=== PATIENT | male | born 1980 | race Caucasian/White ===

== ENCOUNTER → 2018-04-25 16:24 | Outpatient (CLI) | payer BC, SELFPAY ==
--- NOTE | 2018-04-25 | DI.MRI.S_ITS ---
PROCEDURE: MR HAND LT WO/W CON INDICATIONS: LOCALIZED SWELLING/MASS AND LUMP LEFT LATERAL 2ND DIGIT TECHNIQUE: Noncontrast coronal T1 spin echo and STIR, sagittal T1 spin echo with fat saturation and STIR, axial T1 spin echo and T2 fast spin echo with fat saturation. After the administration of contrast, axial/sagittal/coronal T1 spin echo with fat saturation through the left hand and left second finger. COMPARISON: None. FINDINGS: Image quality: Excellent. Bones: The visualized bone marrow demonstrates normal signal on all sequences. The overlying cortex appears intact. No cortical erosion or destruction is seen. No abnormal intraosseous enhancement. Soft tissues: There is a well-circumscribed T1 hypointense and T2 hyperintense structure within subcutaneous soft tissue along radial and slightly volar aspect of the second finger adjacent to second proximal phalangeal shaft. This structure appears to have a well defined capsule and is homogeneous in signal intensity. This lesion measures 1.5 x 1.5 x 2 cm in its largest transverse, AP and craniocaudal dimensions. No gross contrast enhancement is noted within the structure is seen. The scanned muscles demonstrate normal overall bulk and internal signal. No area of abnormal contrast enhancement is noted.. IMPRESSION: 1. Oval 1.5 x 1.5 x 2 cm well-circumscribed fluid signal structure involving subcutaneous soft tissue along radial and slightly volar aspect of right second proximal phalangeal shaft with no definite contrast enhancement. No adjacent cortical erosion or surrounding soft tissue edema is seen. Finding likely represent benign process such as ganglion cyst. 2. No other soft tissue masses seen. No marrow signal abnormality. No area of abnormal contrast enhancement. Tendons and ligaments of fingers are intact. Dictated by: Tom Cyr M.D. on 04/28/2018 at 9:51 Approved by: Tom Cyr M.D. on 04/28/2018 at 10:11
== END ==
PROVIDERS: Visit Provider Orthopaedic Surgery
DX: R22.32 Localized swelling, mass and lump, left upper limb (principal)
CPT/HCPCS: 73220; A9579

== ENCOUNTER 2019-10-29 22:44 | Emergency (ER) | payer OTHER, SELFPAY ==
--- NOTE | 2019-10-29 22:46 | DI.RAD.S_ITS ---
PROCEDURE: XR FINGER RT MIN 2V INDICATIONS: deep laceration right hand ring finger TECHNIQUE: AP hand, 2 views of the right fourth finger(s) acquired. COMPARISON: None. FINDINGS: Bones: No fractures or dislocations. No suspicious bony lesions. Soft tissues: No suspicious soft tissue calcifications. Small 1 x 2 mm metallic density foreign body noted in the soft tissues lateral to the head of the fourth proximal phalange. Soft tissue defect noted in the base of the fourth finger compatible with laceration. IMPRESSION: 1. No fracture. No osseous lesion. If symptoms and/or clinical suspicion for pathology persists, further assessment with repeat radiographs (7-10 days) or advanced imaging (e.g. CT, MRI or bone scan) may be helpful. 2. Small metallic density foreign body in the soft tissues of the fourth finger lateral to the distal margin of the fourth proximal phalange. Dictated by: Leah Gonsalez MD, PhD on 10/30/2019 at 8:26 Approved by: Leah Gonsalez MD, PhD on 10/30/2019 at 8:28
[2019-10-29 22:50] VITALS: BP 138/86; PULSE 98; RESP 18; TEMP 36.9; O2SAT 97; BMI 30.2
[2019-10-29] MEDS: cephALEXin 250 MG PREPACK 1 BOTTLE MISC (22:54)
[2019-10-29] MEDS: LIDO 1%/SOD BICARB 8.4% (10ML) 10 ML SYRINGE INJ (22:54)
--- NOTE | 2019-10-30 00:09 | PC.NURSE ---
sutures per dr. klein
[2019-10-30 00:21] VITALS: BP 134/82; PULSE 90; RESP 15; O2SAT 96
--- NOTE | 2019-10-30 07:34 | ED_ITS ---
HPI - Wound/Laceration General Chief Complaint: Wound/Laceration Stated Complaint: laceration to right hand ring finger Time Seen by Provider: 10/29/19 22:46 Source: patient Mode of arrival: Ambulatory Limitations: no limitations History of Present Illness HPI narrative: 39-year-old male, daily smoker with out medical history presents with a work related deep, complex laceration on his right ring finger. He has g ot painful but full range of motion and bleeding has been controlled. He denies any numbness, tingling or weakness. His tetanus is current. He denies other injury. He was working with heavy objects when his finger was pinched by large pieces of metal. Onset (ago): minute(s) Extremity Location: Right: hand Place: work Patient tetanus UTD: Yes Context: accidental Associated symptoms: pain Treatments prior to arrival: bandage Related Data Previous Rx's Medication Instructions Recorded hydroxyzine HCl 25 mg tablet 25 mg PO TID-QID PRN #90 tab 04/02/18 cephalexin [Keflex] 500 mg PO QID 7 Days #28 cap 10/29/19 Allergies Allergy/AdvReac Type Severity Reaction Status Date / Time No Known Drug Allergies Allergy Unverified 04/02/18 16:06 Review of Systems Constitutional Constitutional: Denies chills, Denies fatigue, Denies fever(s), Denies frequent falls, Denies lethargy and Denies weakness Eyes Eyes: Denies change in vision, Denies eye discharge, Denies irritation and Denies loss of vision ENT Ears, Nose, Mouth, and Throat: Denies change in voice, Denies dizziness, Denies neck pain, Denies sore throat and Denies throat swelling Cardiovascular Cardiovascular: Denies chest pain, Denies irregular heart rhythm, Denies lightheadedness, Denies palpitations, Denies dyspnea, Denies dyspnea on exertion and Denies orthopnea Respiratory Respiratory: Denies cough, Denies dyspnea, Denies dyspnea on exertion and Denies wheezing Gastrointestinal Gastrointestinal: Denies abdominal pain, Denies change in bowel habits, Denies diarrhea, Denies nausea and Denies vomiting Musculoskeletal Musculoskeletal: Denies neck pain and Denies numbness Integumentary/Breasts Skin/Breast: Denies pruritus, Denies erythema, Denies rash and Reports wounds Neurologic Neurologic: Denies behavioral changes, Denies confusion, Denies dizziness, Denies frequent falls, Denies loss of vision, Denies numbness and Denies weakness Psychiatric Psychiatric: Denies anxiety, Denies behavioral changes, Denies confusion, Denies depression, Denies homicidal ideation and Denies suicidal ideation Endocrine Endocrine: Denies fatigue, Denies flushing and Denies palpitations Hematologic/Lymphatic Hematologic/Lymphatic: Denies easy bruising Allergic/Immunologic Allergic/Immunologic: Denies urticaria, Denies throat swelling and Denies wheezing Patient History Social History Smoking Status: Current every day smoker alcohol intake: current substance use type: does not use Smoking Status: Current every day smoker alcohol intake frequency: a few times a week Substance Use Type: does not use Exam Narrative Exam Narrative: GEN: AOx3 and in mild distress EYES: Pupils are equal, round, and reactive to light and accommodation. Extraoccular muscles are intact bilaterally. There is no subconjunctival hemorrhage or exudate. CHEST: Lungs are clear to auscultation bilaterally and free of wheezes, rales, or rhonchi. Heart rate is regular rhythm, there are no murmurs, clicks, rubs, or gallops. There is no chest wall tenderness. ABD: Abdomen is soft and nontender. There is no guarding or rebound. Bowel soun ds are normal in all 4 quadrants. There is no mass or organomegaly. EXT: 3 cm ragged laceration on the dorsum of right ring finger. No active bleeding, deep but no tendon involvement, no bony involvement. No numbness, tingling or weakness. Patient has full range of motion and strength SKIN: Otherwise warm, pink, and dry. No erythema or rash Initial Vital Signs Initial Vital Signs: Vital Signs Temperature 98.4 F 10/29/19 22:50 Pulse Rate 98 H 10/29/19 22:50 Respiratory Rate 18 10/29/19 22:50 Blood Pressure 138/86 10/29/19 22:50 Pulse Oximetry 97 10/29/19 22:50 Procedures Laceration Repair Laceration 1: Side (If applicable): right Size (cm): 3 Description: irregular, clean and contaminated (2 small FBs removed) Depth: involves muscle layer Pre-repair: wound explored and irrigated extensively Skin layer closed with: nylon Size (cm): 4-0 Technique: simple, interrupted Nerve Block Nerve Block 1: Time out performed: Yes Local Anesthetic: lidocaine 1% and with bicarb Amount of anesthesia used (mL): 6 Side: right Nerve Blocks: digital Procedure Successful: Yes Patient Tolerated Procedure: Well Complications: none Course Orders Ordered: Discontinued Medications Cefazolin Sodium (Keflex 250 Mg Prepack) 1 bottle MISC SEEINSTR ONE Stop: 10/29/19 22:47 Last Admin: 10/29/19 22:54 Dose: 500 mg Documented by: DUANE Lidocaine/Sodium Bicarbonate (Buffered Lidocaine 10 Ml Syr) 10 ml INJ NOW ONE Stop: 10/29/19 22:47 Last Admin: 10/29/19 22:54 Dose: 10 ml Documented by: DUANE Vital Signs Vital signs: Vital Signs - 8 hr 10/30/19 00:21 Pulse Rate 90 Respiratory Rate 15 Blood Pressure 134/82 Pulse Oximetry 96 MDM - Wound/Laceration Imaging Data Extremity x-ray #1: Radiologist's Impression: Chart Viewer Diagnostics DATE TYPE STATUS REF RANGE/AUTHOR Hx 10/29/19 22:46 Leah Gonsalez 04/25/18 00:00 Tom Cyr Ayaan Adams 39, M106/26/1979 [facility], [facility] ED 187.96cm 106.594kg BMI: 30.2kg/m? Wound/Laceration Search Chart No Data to Display ONSET 10/30/19 00:21 KadenAyaan paz 39 M [address] [address] XRay Report Signed Patient: Ayaan Adams [facility]#: [id number] : 1980Acct:[id number] Age/Sex: 39 / MDate of Service: 10/29/19 Loc: ED Accession Number: [id number] Procedure: XR finger RT min 2V Ordering Provider: Jonas Allan D.O. PROCEDURE: XR FINGER RT MIN 2V INDICATIONS: deep laceration right hand ring finger TECHNIQUE: AP hand, 2 views of the right fourth finger(s) acquired. COMPARISON: None. FINDINGS: Bones: No fractures or dislocations. No suspicious bony lesions. Soft tissues: No suspicious soft tissue calcifications. Small 1 x 2 mm metallic density foreign body noted in the soft tissues lateral to the head of the fourth proximal phalange. Soft tissue defect noted in the base of the fourth finger compatible with laceration. IMPRESSION: 1. No fracture. No osseous lesion. If symptoms and/or clinical suspicion for pathology persists, further assessment with repeat radiographs (7-10 days) or advanced imaging (e.g. CT, MRI or bone scan) may be helpful. 2. Small metallic density foreign body in the soft tissues of the fourth finger lateral to the distal margin of the fourth proximal phalange. Dictated by: Leah Gonsalez MD, PhD on 10/30/2019 at 8:26 Approved by: Leah Gonsalez MD, PhD on 10/30/2019 at 8:28 Discharge Plan Departure Patient Disposition: Home Clinical Impression: Laceration of finger of right hand Qualifiers: Encounter type: initial encounter Finger: ring finger Damage to nail status: without damage Foreign body presence: without foreign body Qualified Code(s): S61.214A - Laceration without foreign body of right ring finger without damage to nail, initial encounter Discharge Date/Time: 10/30/19 00:23 Instructions: DI for Laceration Repair Activity Restrictions/Additional Instructions: Please keep the wound clean and dry to the best of your ability. Please monitor for signs of infection such as redness to the skin or increasing pain. Have the sutures removed by your doctor in about 7 days. If you are unable to get into your doctor, we would be happy to remove the sutures in that same timeframe. Prescriptions: New cephalexin [Keflex] 500 mg capsule 500 mg PO QID 7 Days Qty: 28 RF: 0 No Action hydroxyzine HCl 25 mg tablet 25 mg PO TID-QID PRN (Reason: itching) Qty: 90 RF: 3 Referrals: Paulo Dhaliwal MD [Primary Care Provider] -
== END 2019-10-30 00:23 | disposition home or self-care (01) ==
PROVIDERS: Emergency Provider Emergency Medicine; PCP Student in an Organized Health Care Education/Training Program
DX: S61.214A Laceration without foreign body of right ring finger without damage to nail, initial encounter (principal); W26.8XXA Contact with other sharp object(s), not elsewhere classified, initial encounter; Y99.0 Civilian activity done for income or pay
CPT/HCPCS: 12002; 64450; 73140; 99283

== ENCOUNTER → 2020-07-07 14:05 | Outpatient (CLI) | payer OTHER, SELFPAY ==
--- NOTE | 2020-07-07 | DI.RAD.S_ITS ---
PROCEDURE: XR ANKLE RT MIN 3V INDICATIONS: RIGHT ANKLE PAIN TECHNIQUE: 3 views of the ankle were acquired. COMPARISON: None. FINDINGS: Bones: No fractures or dislocations. Ankle mortise is normally aligned. No suspicious bony lesions. Scattered degenerative subchondral sclerosis and spurring. Soft tissues: No tibiotalar joint effusion. Achilles tendon appears normal. IMPRESSION: Mild degenerative changes. If the patient's pain or other symptoms persist, consider further evaluation with MRI Dictated by: Darrius Light M.D. on 07/07/2020 at 15:37 Approved by: Darrius Light M.D. on 07/07/2020 at 15:39
== END ==
PROVIDERS: PCP Student in an Organized Health Care Education/Training Program; Referring Provider Family Medicine; Visit Provider Family Medicine
DX: M25.571 Pain in right ankle and joints of right foot (principal)
CPT/HCPCS: 73610

== ENCOUNTER → 2020-11-21 07:58 | Outpatient (CLI) | payer OTHER, SELFPAY ==
--- NOTE | 2020-11-21 | DI.RAD.S_ITS ---
PROCEDURE: XR RIBS LT MIN 3V W CXR1V INDICATIONS: LEFT RIB PAIN TECHNIQUE: 3 views of the left ribs were acquired, along with a single view chest. COMPARISON: None. FINDINGS: Surgical changes and devices: None. Bones and chest wall: There is a nondisplaced left 9th and 10th lateral rib fractures. No suspicious bony lesions. Overlying soft tissues appear unremarkable. Lungs and pleura: No pleural effusions or pneumothorax. Lungs appear clear. Mediastinum: Mediastinal contours appear normal. Heart size is normal. IMPRESSION: Nondisplaced left 9th and 10th rib fractures. Dictated by: Marline Zacarias M.D. on 11/21/2020 at 8:41 Approved by: Marline Zacarias M.D. on 11/21/2020 at 8:43
== END ==
PROVIDERS: PCP Student in an Organized Health Care Education/Training Program; Referring Provider Family Medicine; Visit Provider Family Medicine
DX: S22.42XA Multiple fractures of ribs, left side, initial encounter for closed fracture (principal); R07.81 Pleurodynia; W17.89XA Other fall from one level to another, initial encounter
CPT/HCPCS: 71101

== ENCOUNTER → 2021-05-02 13:11 | Outpatient (ROUT) | payer OTHER, SELFPAY ==
[2021-05-02 13:40] LABS: COVID19 -Nasal RAPID Negative (Negative)
== END ==
PROVIDERS: PCP Student in an Organized Health Care Education/Training Program; Visit Provider Family Medicine
DX: R05.9 Cough, unspecified (principal); R52 Pain, unspecified
CPT/HCPCS: 87635

== ENCOUNTER 2024-05-28 10:19 | Emergency (ER) | payer OTHER, SELFPAY ==
[2024-05-28 10:32] VITALS: BP 136/81; PULSE 108; RESP 13; TEMP 36.4; O2SAT 96; BMI 31.4
--- NOTE | 2024-05-28 10:37 | DI.RAD.S_ITS ---
PROCEDURE: XR FINGER LT MIN 2V INDICATIONS: caught finger in drill press TECHNIQUE: AP hand, 2 views of the 4th finger(s) acquired. COMPARISON: [facility], CR, XR FINGER RT MIN 2V, 10/29/2019, 22:50. FINDINGS: Bones: Comminuted 4th distal phalanx fracture centered at the base. There is intra-articular extension. There is appearance of avulsion extension at the distal aspect of the 4th middle phalanx at the level of the joint space. Soft tissues: No suspicious soft tissue calcifications. Soft tissue laceration is present. IMPRESSION: 4th digit comminuted intra-articular fractures as above. Dictated by: Marline Zacarias M.D. on 05/28/2024 at 11:05 Approved by: Marline Zacarias M.D. on 05/28/2024 at 11:06
--- NOTE | 2024-05-28 12:14 | ED_ITS ---
HPI - Wound/Laceration <Jeane Goodman PA-C - Last Filed: 05/28/24 19:23> General Chief Complaint: Wound/Laceration Stated Complaint: cut Left ring finger Time Seen by Provider: 05/28/24 11:39 Mode of arrival: Ambulatory History of Present Illness HPI narrative: Mr. Adams is a pleasant 44-year-old male with no reported past medical history who presents to the emergency department for laceration of his left ring finger that occurred just prior to arrival. Patient was working with an electric drill press when his left ring finger got caught in the drill press. Reports a jagged bleeding laceration on the radial side of his distal ring finger. States his last tetanus shot was about 4 years ago. Denies any other injuries. Pressure dressing applied in triage with no bleeding soak through. No medications prior to arrival. No blood thinner use. No allergies. Related Data Previous Rx's Medication Instructions Recorded hydroxyzine HCl 25 mg tablet 25 mg PO TID-QID PRN itching #90 04/02/18 tabs cephalexin 500 mg capsule 500 mg PO QID 7 days #28 caps 05/28/24 Allergies Allergy/AdvReac Type Severity Reaction Status Date / Time No Known Drug Allergies Allergy Verified 05/28/24 10:32 Review of Systems <Jeane Goodman PA-C - Last Filed: 05/28/24 19:23> Review of Systems ROS Unobtainable: All systems reviewed & are unremarkable except as noted in HPI and below Patient History <Jeane Goodman PA-C - Last Filed: 05/28/24 19:23> Social History Smoking Status: Unknown if ever smoked alcohol intake: current substance use type: does not use Smoking Status: Unknown if ever smoked alcohol intake frequency: a few times a week Exam <Jeane Goodman PA-C - Last Filed: 05/28/24 19:23> Narrative Exam Narrative: GENERAL: 44 year old patient appears stated age. Well-developed patient, in no acute distress. NECK: Trachea midline. Cervical ROM intact. CARDIOVASCULAR: Strong left radial pulse. Brisk capillary refill distal to the wound. RESPIRATORY: ?Nonlabored respirations. ?Speaking in clear, full sentences. ? EXTREMITIES: Full range of motion of left hand including left ring finger. NEURO: AOx3. ?Clear speech. ?Moves all 4 extremities appropriately. Sensation intact to light touch distal to the wound. SKIN: Approximately 3 cm jagged linear laceration on the radial aspect of the distal left 4th finger crossing DIP. Substantial bleeding/oozing that is controlled with direct pressure but immediately returns upon release of pressure. No nail bed involvement. Initial Vital Signs Initial Vital Signs: Vital Signs Temperature 97.6 F 05/28/24 10:32 Pulse Rate 108 H 05/28/24 10:32 Respiratory Rate 13 05/28/24 10:32 Blood Pressure 136/81 05/28/24 10:32 Pulse Oximetry 96 05/28/24 10:32 Oxygen Delivery Method Room Air 05/28/24 10:32 <Cassi Montanez DO - Last Filed: 05/31/24 07:26> Initial Vital Signs Initial Vital Signs: Vital Signs Temperature 97.6 F 05/28/24 10:32 Pulse Rate 108 H 05/28/24 10:32 Respiratory Rate 13 05/28/24 10:32 Blood Pressure 136/81 05/28/24 10:32 Pulse Oximetry 96 05/28/24 10:32 Oxygen Delivery Method Room Air 05/28/24 10:32 Procedures <DONALD Singh Last Filed: 05/28/24 19:23> Laceration Repair Laceration 1: Time of procedure: 13:00 Site: hand (4th finger) Side (If applicable): left Size (cm): 3 Description: irregular Depth: simple, single layer Pre-repair: wound explored and irrigated extensively (Irrigated extensiv angelica with sterile water and Betadine. Minimal debridement performed.) Skin layer closed with: nylon Skin layer suture size: 5-0 Number of sutures: 10 Technique: simple, interrupted Nerve Block Nerve Block 1: Time of procedure: 12:40 Local Anesthetic: lidocaine 1% Amount of anesthesia used (mL): 3 Side: left Nerve Blocks: digital (left ring finger) Procedure Successful: Yes Patient Tolerated Procedure: Well Complications: none Course <DONALD Singh Last Filed: 05/28/24 19:23> Orders Ordered: Discontinued Medications Acetaminophen (Acetaminophen 325 Mg Tablet) 650 mg PO NOW ONE Stop: 05/28/24 12:28 Last Admin: 05/28/24 12:33 Dose: 650 mg Documented By: OPAL Bacitracin (Bacitracin Oint 0.9 Gm Pckt) 1 applic TOP NOW ONE Stop: 05/28/24 14:07 Last Admin: 05/28/24 14:17 Dose: 1 applic Documented By: MAULIK Cephalexin HCl (Cephalexin 250 Mg Capsule) 500 mg PO NOW ONE Stop: 05/28/24 13:11 Last Admin: 05/28/24 13:16 Dose: 500 mg Documented By: OPAL Ibuprofen (Ibuprofen 400 Mg Tablet) 400 mg PO NOW ONE Stop: 05/28/24 12:28 Last Admin: 05/28/24 12:33 Dose: 400 mg Documented By: OPAL Lidocaine HCl (Lidocaine 1% 20 Ml) 5 ml SUBCUT NOW ONE Stop: 05/28/24 12:28 Last Admin: 05/28/24 12:34 Dose: 5 ml Documented By: OPAL Consultations Consultation #1: Consulted orthopedic surgeon on-call Dr. Min. Discussed patient physical exam including bleeding blood vessel, jagged laceration. Discussed x-ray finding of comminuted fracture. He recommended washing out the open fracture extensively sterile fluid/Betadine, repairing laceration, using cautery if needed. He will see the patient tomorrow in clinic in [place] and will remove pressor dressing at that time. Agrees to Keflex for wound prophylaxis. Time: 13:00 Vital Signs Vital signs: Vital Signs - 8 hr 05/28/24 14:29 Pulse Rate 90 Respiratory Rate 14 Blood Pressure 132/78 Pulse Oximetry 97 Oxygen Delivery Method Room Air <Cassi Montanez, DO - Last Filed: 05/31/24 07:26> Orders Ordered: Discontinued Medications Acetaminophen (Acetaminophen 325 Mg Tablet) 650 mg PO NOW ONE Stop: 05/28/24 12:28 Last Admin: 05/28/24 12:33 Dose: 650 mg Documented By: OPAL Bacitracin (Bacitracin Oint 0.9 Gm Pckt) 1 applic TOP NOW ONE Stop: 05/28/24 14:07 Last Admin: 05/28/24 14:17 Dose: 1 applic Documented By: MAULIK Cephalexin HCl (Cephalexin 250 Mg Capsule) 500 mg PO NOW ONE Stop: 05/28/24 13:11 Last Admin: 05/28/24 13:16 Dose: 500 mg Documented By: OPAL Ibuprofen (Ibuprofen 400 Mg Tablet) 400 mg PO NOW ONE Stop: 05/28/24 12:28 Last Admin: 05/28/24 12:33 Dose: 400 mg Documented By: OPAL Lidocaine HCl (Lidocaine 1% 20 Ml) 5 ml SUBCUT NOW ONE Stop: 05/28/24 12:28 Last Admin: 05/28/24 12:34 Dose: 5 ml Documented By: OPAL Vital Signs Vital signs: Vital Signs - 8 hr 05/28/24 14:29 Pulse Rate 90 Respiratory Rate 14 Blood Pressure 132/78 Pulse Oximetry 97 Oxygen Delivery Method Room Air MDM - Wound/Laceration <Jeane Goodman PA-C - Last Filed: 05/28/24 19:23> Medical Records Attestation: I reviewed the patient's medical records. Imaging Data Left 4th Finger X-Ray: Radiologist's Impression: PROCEDURE: XR FINGER LT MIN 2V INDICATIONS: caught finger in drill press TECHNIQUE: AP hand, 2 views of the 4th finger(s) acquired. COMPARISON: [facility], , XR FINGER RT MIN 2V, 10/29/2019, 22:50. FINDINGS: Bones: Comminuted 4th distal phalanx fracture centered at the base. There is intra-articular extension. There is appearance of avulsion extension at the distal aspect of the 4th middle phalanx at the level of the joint space. Soft tissues: No suspicious soft tissue calcifications. Soft tissue laceration is present. IMPRESSION: 4th digit comminuted intra-articular fractures as above. [facility] Narrative Medical decision making narrative: 44-year-old male with no reported past medical history who presents to the emergency department for laceration of his left ring finger that occurred just prior to arrival. Tdap 4 years ago. Differential diagnosis includes but is not limited to laceration, digital palmar artery laceration, open fracture, soft tissue injury, infection, etc. On exam patient is in no acute distress, nontoxic appearing, physical exam revealing a jagged distal left 4th finger laceration that occurred from a drill. Bleeding is controlled with pressure dressing but immediately resumed upon release of direct pressure. X-ray was obtained in the waiting room revealing a comminuted fracture of the distal 4th phalanx with intra-articular involvement. After examining the wound and performing a digital block, immediately consulted with Orthopedics. During laceration repair, cautery was attempted but unsuccessful at stopping bleeding. Therefore a tourniquet was applied to the finger just distal to the PIP joint for 5 minutes while I used a suture to stop the bleeding vessel successfully. Wound was cleansed and irrigated extensively both before and after using sterile saline, sterile water, Betadine. Small amount of debridement was performed. In total 10 sutures were used to close the wound. Bacitracin and a nonadherent dressing was applied followed by an aluminum splint. The patient is agreeable to follow up with Dr. Min at his [place] clinic tomorrow as discussed with Dr. Min. Advised patient to avoid removing the wound dressing as orthopedic surgeon will remove it tomorrow. We did discuss signs and symptoms of infection to return to the ER immediately for including proper wound care. Patient was given 1st dose of Keflex in the ED and 7 day course was sent to his pharmacy. Recommended rice therapy and ibuprofen/Tylenol for pain. Patient is happy with this plan, stable for discharge home. Discharge Plan Departure Patient Disposition: Home Clinical Impression: Open comminuted fracture of distal phalanx of finger Laceration of finger of left hand Qualifiers: Encounter type: initial encounter Finger: ring finger Damage to nail status: without damage Foreign body presence: unspecified Qualified Code(s): S61.215A - Laceration without foreign body of left ring finger without damage to nail, initial encounter Instructions: DI for Laceration Repair Activity Restrictions/Additional Instructions: Please call to schedule an appointment with orthopedic surgeon Dr. Min at [facility] tomorrow 05/29/2024 in [place]. [phone]. Today you had a laceration to your left ring finger. We have placed 10 sutures. They need to be removed in 10-14 days. You may do this in your doctor's office, the [id number], or here if necessary. Please keep the dressing on your wound clean, dry, and intact for the next [address] Min will remove dressing tomorrowAfter this time, you may remove the dressing and gently clean the wound with soap and water, then pat dry. Keep the wound clean and covered. Avoid soaking the wound in any water such as a bath, pool, or the ocean. If you develop any signs of wound infection such as increased redness, pus drainage, streaking redness, or fevers, please return to the ER immediately for evaluation. Once sutures are removed and the wound has healed, apply sunscreen daily to reduce the appearance of scars. Please use RICE therapy for your pain in addition to ibuprofen/acetaminophen. Rest the painful area. Ice the area of pain/swelling for at least 15 minutes, 4x a day. Compress the area of swelling using a brace, wrap, or splint if applied. Elevate the painful or swollen extremity by supporting it above the level of the heart with pillows when sitting or laying. Please take Ibuprofen (Motrin/Advil) or Acetaminophen (Tylenol) for pain. These are available over the counter. You may take Ibuprofen 600 mg every 8 hours with food for pain. You may also take Acetaminophen 650 mg every 4-6 hours for pain. Do not exceed 3000 mg of Tylenol a day as this can cause liver damage. Do not drink alcohol with either of these medications. Please follow up with your primary care doctor within the next 2-3 days for ER follow-up. (If you do not have a PCP you can call [phone]. ?to schedule an appointment with an [facility] Primary Care Provider) IF YOU DEVELOP ANY NEW OR WORSENING SYMPTOMS, RETURN TO THE ER! Please read the attached instructions, they highlight more specific treatments and interventions for you at home. Thank you for letting me participate in your care, Jeane Goodman PA-C Prescriptions: New cephalexin 500 mg capsule 500 mg PO QID 7 Days Qty: 28 0RF No Action hydroxyzine HCl 25 mg tablet 25 mg PO TID-QID PRN (Reason: itching) Qty: 90 3RF Referrals: Miscellaneous,MD Moon [Primary Care Provider] - Dean Min MD [Physician] - (open fracture left ring finger ) Stand Alone Forms: Patient Portal/API/Survey ED Sign-out <Cassi Montanez DO - Last Filed: 05/31/24 07:26> Cosign ED Attending Maude Attestation: I was available for consultation.
[2024-05-28] MEDS: ACETAMINOPHEN 325 MG TABLET 650 MG PO (12:33)
[2024-05-28] MEDS: IBUPROFEN 400 MG TABLET PO (12:33)
[2024-05-28] MEDS: LIDOCAINE 1% 20 ML 5 ML SUBCUT (12:34)
[2024-05-28] MEDS: cephALEXin 250 MG CAPSULE 500 MG PO (13:16)
[2024-05-28] MEDS: BACITRACIN OINT 0.9 GM PCKT 1 APPLIC TOP (14:17)
[2024-05-28 14:29] VITALS: BP 132/78; PULSE 90; RESP 14; O2SAT 97
== END 2024-05-28 14:31 | disposition home or self-care (01) ==
PROVIDERS: Emergency Provider Physician Assistant
DX: S61.215A Laceration without foreign body of left ring finger without damage to nail, initial encounter (principal); S62.635A Displaced fracture of distal phalanx of left ring finger, initial encounter for closed fracture; W29.8XXA Contact with other powered hand tools and household machinery, initial encounter
CPT/HCPCS: 12002; 64450; 73140; 99283; 99284

== ENCOUNTER → 2024-09-09 12:43 | Outpatient (ROUT) | payer OTHER, SELFPAY ==
[2024-09-09 13:09] LABS: Cholesterol 208 mg/dL (140-199); HDL Cholesterol 46 mg/dL (40-60); Triglycerides 187 mg/dL (35-150)
[2024-09-09 13:43] LABS: Testosterone 405 ng/dL (132-813)
[2024-09-09 15:41] LABS: Vitamin D 25 Hydroxy (D3) 87.6 ng/mL (30.0-100.0)
== END ==
PROVIDERS: Visit Provider Family Medicine
DX: E78.5 Hyperlipidemia, unspecified (principal); R53.83 Other fatigue
CPT/HCPCS: 82306; 82465; 83718; 84403; 84478